=== PATIENT | female | born 1990 | race Caucasian/White ===

== ENCOUNTER 2017-10-29 10:00 | Inpatient (IN) | payer OTHER ==
[2017-10-29 10:53] VITALS: BMI 17.2
[2017-10-29] MEDS ORDERED: Sodium Chloride 0.9% 1,000 ML IV STA (11:04)
--- NOTE | 2017-10-29 11:09 | ED PDOC ---
Arrival/HPI - General Chief Complaint: Back Pain Time Seen by Provider: 10/29/17 10:59 Historian: Patient - History of Present Illness Narrative History of Present Illness (Text): 10/29/17 11:06 27yo female with no PMhx who present with complaint of generalized bodyache, back pain, dysuria, nausea, vomiting and fever since last night. she did not take any medication for her symptoms. She denies cough, sore throat, abdominal pain, urinary frequency, hematuria, melena, diarrhea, any other complaint. Past Medical History - Provider Review Nursing Documentation Reviewed: Yes - Infectious Disease Hx of Infectious Diseases: None - Tetanus Immunization Tetanus Immunization: Unknown - Reproductive Menopause: No - Cardiac Hx Cardiac Disorders: No - Pulmonary Hx Respiratory Disorders: No - Neurological Hx Neurological Disorder: No - HEENT Hx HEENT Disorder: No - Renal Hx Renal Disorder: No - Endocrine/Metabolic Hx Endocrine Disorders: No - Hematological/Oncological Hx Blood Disorders: No - Integumentary Hx Dermatological Disorder: No - Musculoskeletal/Rheumatological Hx Falls: No - Gastrointestinal Hx Gastrointestinal Disorders: No - Genitourinary/Gynecological Hx Urinary Tract Infection: Yes - Psychiatric Hx Substance Use: No - Anesthesia Hx Anesthesia: No Family/Social History - Physician Review Nursing Documentation Reviewed: Yes Family/Social History: Unknown Family HX Smoking Status: Never Smoked Hx Alcohol Use: No Hx Substance Use: No Allergies/Home Meds Allergies/Adverse Reactions: Allergies No Known Allergies Allergy (Verified 10/29/17 10:49) Home Medications: Home Meds Medication Instructions Recorded Confirmed No Known Home Med 10/29/17 10/29/17 Review of Systems - Physician Review All systems were reviewed & negative as marked: Yes - Review of Systems Constitutional: Fatigue, Fevers Eyes: Normal ENT: Normal Respiratory: Normal Cardiovascular: Normal Gastrointestinal: Normal Genitourinary Female: Dysuria. absent: Frequency, Hematuria Musculoskeletal: Back Pain Skin: Normal Neurological: Normal Endocrine: Normal Hemo/Lymphatic: Normal Psychiatric: Normal Physical Exam Vital Signs Reviewed: Yes Vital Signs Temp Pulse Resp BP Pulse Ox 10/29/17 20:02 109 H 18 116/58 L 98 10/29/17 16:45 100.4 F H 113 H 18 117/71 100 10/29/17 15:31 110 H 18 100 10/29/17 14:02 104 H 18 132/77 99 10/29/17 12:31 100.1 F H 90 18 106/54 L 100 10/29/17 10:43 102.0 F H 110 H 19 129/81 100 Temperature: Febrile Blood Pressure: Normal Pulse: Tachycardic Respiratory Rate: Normal Appearance: Positive for: Well-Appearing, Non-Toxic, Comfortable Pain Distress: None Mental Status: Positive for: Alert and Oriented X 3 - Systems Exam Head: Present: Atraumatic, Normocephalic Pupils: Present: PERRL Extroacular Muscles: Present: EOMI Conjunctiva: Present: Normal Mouth: Present: Moist Mucous Membranes Neck: Present: Normal Range of Motion Respiratory/Chest: Present: Clear to Auscultation, Good Air Exchange. No: Respiratory Distress, Accessory Muscle Use Cardiovascular: Present: Regular Rate and Rhythm, Normal S1, S2. No: Murmurs Abdomen: Present: Normal Bowel Sounds. No: Tenderness, Distention, Peritoneal Signs, Rebound, Guarding, McBurney's Point Tender, Rovsing's Sign Present Back: Present: CVA Tenderness (right CVA tenderness) Upper Extremity: Present: Normal Inspection. No: Cyanosis, Edema Lower Extremity: Present: Normal Inspection. No: Edema Neurological: Present: GCS=15, CN II-XII Intact, Speech Normal Skin: Present: Warm, Dry, Normal Color. No: Rashes Psychiatric: Present: Alert, Oriented x 3, Normal Insight, Normal Concentration Medical Decision Making ED Course and Treatment: 10/29/17 20:13 PT in ED for stated history. She was febrile and tachy on presentation. Leukocysotis was noted and pt have right sided CVA tenderness. She continued to complain of pain in ED after medication. She was hydrated and her HR improved in ED. Rapid flu was negative. Pt had large blood in her UA and abdominal / pelvic CT was ordered to r/o renal colic. Abdominal /Pelvis CT Pt will be admitted tof pyelonephritis. Result and plan was DW the pt and she agreed. Case was DW Dr. Cutler and he accepted pt for admission. He saw patient by the bedside in ED. - Lab Interpretations Lab Results: 10/29/17 11:00 10/29/17 11:00 Lab Results 10/29/17 11:33: Urine Color Yellow, Urine Appearance Clear, Urine pH 6.0, Ur Specific [place] 1.020, Urine Protein 30 H, Urine Glucose (UA) Negative, Urine Ketones Trace H, Urine Blood Large H, Urine Nitrate Negative, Urine Bilirubin Negative, Urine Urobilinogen 0.2, Ur Leukocyte Esterase Small H, Urine RBC 20 - 25, Urine WBC 5 - 10, Ur Epithelial Cells 4 - 5, Urine Bacteria Many, Coarse Granular Casts Trace H 10/29/17 11:00: Beta HCG, Quant < 2.39 10/29/17 11:00: Sodium 140, Potassium 3.5 L, Chloride 100, Carbon Dioxide 27, Anion Gap 16, BUN 10, Creatinine 0.8, Est GFR ( Amer) > 60, Est GFR (Non- Af Amer) > 60, Random Glucose 93, Calcium 10.0, Total Bilirubin 0.9, AST 24, ALT 29, Alkaline Phosphatase 72, Total Protein 8.3, Albumin 4.7, Globulin 3.6, Albumin/Globulin Ratio 1.3 10/29/17 11:00: WBC 15.5 H D, RBC 3.84, Hgb 11.9 L, Hct 36.2, MCV 94.3, MCH 31.0 , MCHC 32.9, RDW 13.6, Plt Count 249, MPV 10.4, Gran % 87.6 H, Lymph % (Auto) 3.5 L, [place] % (Auto) 8.8 H, Eos % (Auto) 0.0 L, Baso % (Auto) 0.1, Gran # 13.59 H, Lymph # (Auto) 0.6 L, [place] # (Auto) 1.4 H, Eos # (Auto) 0.0, Baso # (Auto) 0.01, Neutrophils % (Manual) 92 H, Lymphocytes % (Manual) 3 L, Monocytes % ( Manual) 5 - RAD Interpretation Radiology Orders: 10/29/17 11:50 ABD & PELVIS W/O PO OR IV CONT [CT] Stat - Medication Orders Current Medication Orders: Acetaminophen (Tylenol 325mg Tab) 650 mg PO Q6 PRN PRN Reason: Fever >100.4 F Famotidine (Pepcid) 20 mg PO DAILY YORDAN Sodium Chloride (Sodium Chloride 0.9%) 1,000 mls @ 100 mls/hr IV .Q10H YORDAN Last Admin: 10/29/17 17:47 Dose: 100 mls/hr eMAR Start Stop Document 10/29/17 17:47 BECKI (Rec: 10/29/17 17:47 BECKI CHEN-PC) Intravenous Solution Start Date 10/29/17 Start Time 17:47 Potassium Chloride (Potassium Chloride 20 Meq/100 Ml) 20 meq in 100 mls @ 50 mls/hr IVPB Q2H YORDAN Stop: 10/29/17 21:14 Last Admin: 10/29/17 17:46 Dose: 50 mls/hr eMAR Start Stop Document 10/29/17 17:46 BECKI (Rec: 10/29/17 17:46 BECKI CHEN-PC) Intravenous Solution Start Date 10/29/17 Start Time 17:46 End Date 10/29/17 End time 19:46 Total Infusion Time 120 Metronidazole (Flagyl) 500 mg in 100 mls @ 100 mls/hr IVPB Q8 YORDAN PRN Reason: Protocol Ceftriaxone Sodium (Rocephin 2 Gm Ivpb) 2 gm in 100 mls @ 100 mls/hr IVPB DAILY YORDNA PRN Reason: Protocol Ketorolac Tromethamine (Toradol) 15 mg IVP Q6 PRN PRN Reason: Pain, moderate (4-7) Ondansetron HCl (Zofran Inj) 4 mg IVP Q6 PRN PRN Reason: Nausea/Vomiting Discontinued Medications Acetaminophen (Tylenol 325mg Tab) 650 mg PO STAT STA Stop: 10/29/17 11:05 Last Admin: 10/29/17 11:14 Dose: 650 mg [facility] Pain/Vitals Document 10/29/17 11:14 BECKI (Rec: 10/29/17 11:14 BECKI CHEN-PC) Pain Reassessment Is This A Pain ReAssessment? No Sleep Is patient sleeping during reassessment? No Presence of Pain Presence of Pain Yes Re-Assess: [facility] Pain/Vitals Document 10/29/17 12:14 BECKI (Rec: 10/29/17 17:30 BECKI CHEN-PC) Pain Reassessment Is This A Pain ReAssessment? No Sleep Is patient sleeping during reassessment? No Presence of Pain Presence of Pain No Sodium Chloride (Sodium Chloride 0.9%) 1,000 mls @ 999 mls/hr IV .Q1H1M STA Stop: 10/29/17 12:04 Last Admin: 10/29/17 11:13 Dose: 999 mls/hr eMAR Start Stop Document 10/29/17 11:13 SZA (Rec: 10/29/17 11:13 BECKI CHEN-PC) Intravenous Solution Start Date 10/29/17 Start Time 11:13 End Date 10/29/17 End time 12:13 Total Infusion Time 60 Metronidazole (Flagyl) 500 mg in 100 mls @ 100 mls/hr IVPB STAT STA PRN Reason: Protocol Stop: 10/29/17 15:52 Last Admin: 10/29/17 15:25 Dose: 100 mls/hr eMAR Start Stop Document 10/29/17 15:25 SZA (Rec: 10/29/17 15:25 BECKI CHEN-PC) Intravenous Solution Start Date 10/29/17 Start Time 15:25 End Date 10/29/17 End time 16:00 Total Infusion Time 35 Cefepime HCl (Maxipime 2gm) 2 gm in 100 mls @ 100 mls/hr IVPB STAT STA PRN Reason: Protocol Stop: 10/29/17 15:51 Last Admin: 10/29/17 16:23 Dose: 100 mls/hr eMAR Start Stop Document 10/29/17 16:23 SZA (Rec: 10/29/17 16:37 BECKI CHEN-PC) Intravenous Solution Start Date 10/29/17 Start Time 16:20 End Date 10/29/17 End time 17:20 Total Infusion Time 60 Vancomycin HCl (Vancomycin 1gm) 1 gm in 250 mls @ 167 mls/hr IVPB STAT STA PRN Reason: Protocol Stop: 10/29/17 16:22 Last Admin: 10/29/17 17:54 Dose: 167 mls/hr eMAR Start Stop Document 10/29/17 17:54 SZA (Rec: 10/29/17 17:54 BECKI [id number]) Intravenous Solution Start Date 10/29/17 Start Time 17:54 End Date 10/29/17 End time 19:30 Total Infusion Time 96 Ketorolac Tromethamine (Toradol) 30 mg IVP STAT STA Stop: 10/29/17 11:06 Last Admin: 10/29/17 11:14 Dose: 30 mg MAR Pain Assessment Document 10/29/17 11:14 LYRICA (Rec: 10/29/17 11:14 BECKI [id number]) Pain Reassessment Is this a pain reassessment? No Sleep Is patient sleeping during reassessment? No Presence of Pain Presence of Pain Yes IVP Administration Document 10/29/17 11:14 [facility] (Rec: 10/29/17 11:14 [facility] [id number]) Charges for Administration # of IVP Administrations 1 Re-Assess: [facility] Pain Assessment Document 10/29/17 12:14 [facility] (Rec: 10/29/17 17:29 [facility] [id number]) Pain Reassessment Is this a pain reassessment? No Sleep Is patient sleeping during reassessment? Yes Morphine Sulfate (Morphine) 2 mg IVP STAT STA Stop: 10/29/17 14:47 Last Admin: 10/29/17 15:24 Dose: 2 mg [facility] Pain Assessment Document 10/29/17 15:24 [facility] (Rec: 10/29/17 15:24 [facility] [id number]) Pain Reassessment Is this a pain reassessment? No Sleep Is patient sleeping during reassessment? No Presence of Pain Presence of Pain Yes Description Description Intermittent Intensity of Pain at present 6 IVP Administration Document 10/29/17 15:24 [facility] (Rec: 10/29/17 15:24 [facility] [id number]) Charges for Administration # of IVP Administrations 1 Re-Assess: [facility] Pain Assessment Document 10/29/17 16:24 [facility] (Rec: 10/29/17 20:04 [facility] [id number]) Pain Reassessment Is this a pain reassessment? Yes Sleep Is patient sleeping during reassessment? No Presence of Pain Presence of Pain Yes Pain Scale Used Pain Scale Used Numeric Description Description Intermittent Intensity of Pain at present 3 Ondansetron HCl (Zofran Odt) 4 mg PO STAT STA Stop: 10/29/17 11:05 Last Admin: 10/29/17 11:14 Dose: 4 mg Potassium Chloride (K-Dur 20 Meq Er Tab) 20 meq PO STAT STA Stop: 10/29/17 16:28 Last Admin: 10/29/17 16:39 Dose: 20 meq Disposition/Present on Arrival - Present on Arrival Any Indicators Present on Arrival: No History of DVT/PE: No History of Uncontrolled Diabetes: No Urinary Catheter: No History of Decub. Ulcer: No History Surgical Site Infection Following: None - Disposition Have Diagnosis and Disposition been Completed?: Yes Diagnosis: Pyelonephritis Disposition: HOSPITALIZED Disposition Time: 15:00 Patient Plan: Admission Patient Problems: Current Active Problems Problem Status Onset Pyelonephritis Acute Condition: FAIR
[2017-10-29 11:36] LABS: BASO # 0.01 K/mm3 (0.0-2.0); BASO % 0.1 % (0.0-3.0); GRAN # 13.59 (1.4-6.5); GRAN % 87.6 % (50.0-68.0); HEMOGLOBIN 11.9 g/dL (12.0-16.0); LYMPH # 0.6 (1.2-3.4); LYMPH % 3.5 % (22.0-35.0); MEAN CELL VOLUME 94.3 fl (80.0-105.0); MEAN CORPUSCULAR HGB CONC 32.9 g/dl (31.0-37.0); MEAN PLATELET VOLUME 10.4 fl (7.0-11.0); MONO # 1.4 (0.1-0.6); MONO % 8.8 % (1.0-6.0); PLATELET COUNT 249 10^3/uL (120.0-450.0); RBC 3.84 10^6/uL (3.5-6.1); RED CELL DISTRIBUTION WIDTH 13.6 % (11.5-14.5); WHITE BLOOD COUNT 15.5 10^3/ul (4.5-11.0)
[2017-10-29 11:40] LABS: URINE BILIRUBIN NEGATIVE (NEGATIVE); URINE BLOOD LARGE (NEGATIVE); URINE GLUCOSE (UA) NEGATIVE (NEGATIVE); URINE LEUKOCYTE ESTERASE SMALL Leu/uL (NEGATIVE); URINE NITRATE NEGATIVE (NEGATIVE); URINE PROTEIN 30 mg/dL (<30 mg/dL); URINE UROBILINOGEN 0.2 E.U./dL (<1 E.U./dL)
[2017-10-29 11:42] LABS: URINE APPEARANCE CLEAR (CLEAR); URINE COLOR YELLOW (YELLOW)
[2017-10-29 11:43] LABS: URINE RBC 20 - 25 /hpf (0-2)
[2017-10-29 11:44] LABS: URINE BACTERIA MANY (NEG); URINE COARSE GRANULAR CAST TRACE /hpf (0-2)
[2017-10-29 11:45] LABS: ALB/GLOB RATIO 1.3 (1.1-1.8); ALBUMIN 4.7 g/dL (3.0-4.8); ALT/SGPT 29 U/L (7-56); AST/SGOT 24 U/L (14-36); BLOOD UREA NITROGEN 10 mg/dL (7-21); GFR AFRICAN-AMERICAN > 60; GFR NON-AFRICAN AMERICAN > 60
[2017-10-29 12:01] LABS: LYMPHOCYTE 3 % (22.0-35.0); MONOCYTE 5 % (1.0-6.0); NEUTROPHIL 92 % (50.0-70.0)
--- NOTE | 2017-10-29 13:23 | CT ---
PROCEDURE: CT Abdomen and Pelvis without intravenous contrast HISTORY: back pain r/o renal colic COMPARISON: Abdomen pelvis CT with contrast 05/05/2016 TECHNIQUE: Helical CT of the abdomen and pelvis was performed without oral or intravenous contrast as per referring physician request. Contrast Dose: None Radiation dose: Total exam DLP = 220.49 mGy-cm. This CT exam was performed using one or more of the following dose reduction techniques: Automated exposure control, adjustment of the mA and/or kV according to patient size, and/or use of iterative reconstruction technique. FINDINGS: LOWER THORAX: 4 mm noncalcified nodule or area of limited atelectasis seen at the right middle lobe base laterally, image 3 series 3 common not seen in the prior lung base sections from 05/05/2016 CT. Lung bases are otherwise stable and unremarkable in the interval. LIVER: Tiny lucency is stable at the anterior portion of the dome of the liver too small to characterize. Lack images contrast limits evaluation of liver. A 2nd lucency is less well appreciable currently the previously shown on a T2 CT noted above. GALLBLADDER AND BILE DUCTS: Unremarkable. PANCREAS: Unremarkable. No gross lesion or ductal dilatation. SPLEEN: Unremarkable. ADRENALS: Unremarkable. No mass. KIDNEYS AND URETERS: Unremarkable. No hydronephrosis. No solid mass. VASCULATURE: Unremarkable. No aortic aneurysm. BOWEL: Unremarkable. No obstruction. No gross mural thickening. APPENDIX: The appendix is not identified. A gross pattern of appendicitis not appreciable however the study is limited to lack of contrast agents. PERITONEUM: No prominent ascites. Trace fluid is seen at the right side of the cul-de-sac posteriorly. No free air. LYMPH NODES: Unremarkable. No enlarged lymph nodes. BLADDER: Unremarkable. 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 BONES: No acute fracture. OTHER FINDINGS: None. IMPRESSION: 1. No radiodense urolithiasis, obstructive uropathy or perinephric reaction bilaterally. A limited lumbar scoliotic deformity is again appreciated. 2. Solitary tiny lucency seen at the dome of the liver anteriorly once again. 3. Trace fluid is seen in the right side of the cul-de-sac. No bowel obstruction, mesenteric edema, prominent ascites or free intraperitoneal gas. 4. No fracture is identified, however a limited scoliotic deformity of lumbar spine is again appreciated. 5. Incidental 4 mm noncalcified nodule or possible atypical atelectasis right base laterally. Follow-up chest CT is advised in 12 months to demonstrate resolution or stability.
[2017-10-29] MEDS ORDERED: levoFLOXacin 500 mg in D5W 500 MG/100 ML BAG IVPB STA (14:45)
[2017-10-29] MEDS ORDERED: Morphine 2 mg/ml ISec IVP STA (14:46)
[2017-10-29] MEDS ORDERED: Cefepime IV 2 gm in NS 2 GM/100 ML BAG IVPB STA (14:52)
[2017-10-29] MEDS ORDERED: Vancomycin 1gm in NS 250ml 1 GM/250 ML BAG IVPB STA (14:53)
[2017-10-29] MEDS ORDERED: metroNIDAZOLE IV 500 mg/100 ml 500 MG/100 ML BAG IVPB STA (14:53)
[2017-10-29] MEDS ORDERED: Sodium Chloride 0.9% 1,000 ML IV SCH (16:00)
--- NOTE | 2017-10-29 16:15 | CP.PCM.HP ---
History of Present Illness - History of Present Illness History of Present Illness: H&P. Dr. Cutler 27yo F with no significant PMHx here for evaluation of fever, chills, nausea, vomiting, dysuria and b/l back pain. Patient reports that she went to [facility] last night and her symptoms began soon after. She reports nausea, and multiple episodes of vomiting (nonbilious, nonbloody). Dysuria and Bilateral flank pain (left greater than right). Generalized body aches. Fevers and chills at home. She also reports a generalized headache. She took two OTC ibuprofen last night with no relief. She was accompanied to dinner by boyfriend and son and they do not exhibit any of her symptoms. She denies any other sick contacts. Denies obtaining flu vaccine this year. LMP on Oct 17. Denies and reports having an IUD for contraception. She does report a hx of a slip and fall on ice last week on Oct 23 but denies any other trauma. Fall was minor in nature and she did not have any symptoms after. She does report hx of UTIs in the past, however, this episode of dysuria is not as severe. Currently denies any hematuria. No bowel symptoms. PMHx: denies PSHx: denies Family Hx: denies Social Hx: denies tobacco, denies etoh, denies illicit drugs. NKDA Present on Admission - Present on Admission Any Indicators Present on Admission: No Review of Systems - Review of Systems All systems: reviewed and no additional remarkable complaints except - Constitutional Constitutional: Chills, Fever, Headache - EENT Eyes: absent: Change in Vision Nose/Mouth/Throat: absent: Nasal Discharge, Dysphagia - Cardiovascular Cardiovascular: absent: Chest Pain, Dyspnea - Respiratory Respiratory: absent: Cough, Dyspnea, Chest Congestion - Gastrointestinal Gastrointestinal: Nausea, Vomiting. absent: Abdominal Pain, Diarrhea, Dyspepsia , Dysphagia, Hematemesis, Hematochezia - Genitourinary Genitourinary: Dysuria, Flank Pain. absent: Hematuria - Musculoskeletal Musculoskeletal: Back Pain - Neurological Neurological: absent: Dizziness, Numbness, Focal Weakness, Loss of Vision Past Patient History - Infectious Disease Hx of Infectious Diseases: None - Tetanus Immunizations Tetanus Immunization: Unknown - Past Social History Smoking Status: Never Smoked - CARDIAC Hx Cardiac Disorders: No - PULMONARY Hx Respiratory Disorders: No - NEUROLOGICAL Hx Neurological Disorder: No - HEENT Hx HEENT Problems: No - RENAL Hx Chronic Kidney Disease: No - ENDOCRINE/METABOLIC Hx Endocrine Disorders: No - HEMATOLOGICAL/ONCOLOGICAL Hx Blood Disorders: No - INTEGUMENTARY Hx Dermatological Problems: No - MUSCULOSKELETAL/RHEUMATOLOGICAL Hx Falls: No - GASTROINTESTINAL Hx Gastrointestinal Disorders: No - GENITOURINARY/GYNECOLOGICAL Hx Urinary Tract Infection: Yes - PSYCHIATRIC Hx Substance Use: No - ANESTHESIA Hx Anesthesia: No Meds Allergies/Adverse Reactions: Allergies Allergy/AdvReac Type Severity Reaction Status Date / Time No Known Allergies Allergy Verified 10/29/17 10:49 Physical Exam - Constitutional Appears: Non-toxic, No Acute Distress - Head Exam Head Exam: ATRAUMATIC, NORMAL INSPECTION, NORMOCEPHALIC - Eye Exam Eye Exam: EOMI, Normal appearance. absent: Scleral icterus - ENT Exam ENT Exam: Mucous Membranes Moist - Respiratory Exam Respiratory Exam: Clear to Auscultation Bilateral, NORMAL BREATHING PATTERN. absent: Accessory Muscle Use, Rales, Rhonchi, Wheezes, Respiratory Distress - Cardiovascular Exam Cardiovascular Exam: RRR. absent: JVD - GI/Abdominal Exam GI & Abdominal Exam: Normal Bowel Sounds, Soft. absent: Distended, Firm, Guarding, Rebound, Rigid, Tenderness - Extremities Exam Extremities exam: Positive for: normal inspection. Negative for: calf tenderness - Back Exam Back exam: CVA tenderness (L), CVA tenderness (R) - Neurological Exam Neurological exam: Alert, Oriented x3 - Psychiatric Exam Psychiatric exam: Normal Affect, Normal Mood - Skin Skin Exam: Dry, Intact, Normal Color, Warm Results - Vital Signs Recent Vital Signs: Last Vital Signs Temp 100.1 F H 10/29/17 12:31 Pulse 110 H 10/29/17 15:31 Resp 18 10/29/17 15:31 BP 106/54 L 10/29/17 12:31 Pulse Ox 100 10/29/17 15:31 - Labs Result Diagrams: 10/29/17 11:00 10/29/17 11:00 Labs: Laboratory Results - last 24 hr 10/29/17 10/29/17 10/29/17 11:00 11:00 11:33 WBC 15.5 H D RBC 3.84 Hgb 11.9 L Hct 36.2 MCV 94.3 MCH 31.0 MCHC 32.9 RDW 13.6 Plt Count 249 MPV 10.4 Gran % 87.6 H Lymph % (Auto) 3.5 L [place] % (Auto) 8.8 H Eos % (Auto) 0.0 L Baso % (Auto) 0.1 Gran # 13.59 H Lymph # (Auto) 0.6 L [place] # (Auto) 1.4 H Eos # (Auto) 0.0 Baso # (Auto) 0.01 Neutrophils % (Manual) 92 H Lymphocytes % (Manual) 3 L Monocytes % (Manual) 5 Sodium 140 Potassium 3.5 L Chloride 100 Carbon Dioxide 27 Anion Gap 16 BUN 10 Creatinine 0.8 Est GFR ( Amer) > 60 Est GFR (Non-Af Amer) > 60 Random Glucose 93 Lactic Acid Calcium 10.0 Total Bilirubin 0.9 AST 24 ALT 29 Alkaline Phosphatase 72 Total Protein 8.3 Albumin 4.7 Globulin 3.6 Albumin/Globulin Ratio 1.3 Urine Color Yellow Urine Appearance Clear Urine pH 6.0 Ur Specific [place] 1.020 Urine Protein 30 H Urine Glucose (UA) Negative Urine Ketones Trace H Urine Blood Large H Urine Nitrate Negative Urine Bilirubin Negative Urine Urobilinogen 0.2 Ur Leukocyte Esterase Small H Urine RBC 20 - 25 Urine WBC 5 - 10 Ur Epithelial Cells 4 - 5 Urine Bacteria Many Coarse Granular Casts Trace H 10/29/17 15:20 WBC RBC Hgb Hct MCV MCH MCHC RDW Plt Count MPV Gran % Lymph % (Auto) [place] % (Auto) Eos % (Auto) Baso % (Auto) Gran # Lymph # (Auto) [place] # (Auto) Eos # (Auto) Baso # (Auto) Neutrophils % (Manual) Lymphocytes % (Manual) Monocytes % (Manual) Sodium Potassium Chloride Carbon Dioxide Anion Gap BUN Creatinine Est GFR ( Amer) Est GFR (Non-Af Amer) Random Glucose Lactic Acid 1.1 Calcium Total Bilirubin AST ALT Alkaline Phosphatase Total Protein Albumin Globulin Albumin/Globulin Ratio Urine Color Urine Appearance Urine pH Ur Specific [place] Urine Protein Urine Glucose (UA) Urine Ketones Urine Blood Urine Nitrate Urine Bilirubin Urine Urobilinogen Ur Leukocyte Esterase Urine RBC Urine WBC Ur Epithelial Cells Urine Bacteria Coarse Granular Casts Assessment & Plan - Assessment and Plan (Free Text) Assessment: 27yo F with no PMHx here with b/l flank pain, fevers, chills, N/V, headaches, dysuria 1. SIRS - r/o sepsis - f/u lactic acid - Leukocytosis - Febrile: Tmax 102 - ID consult requested - In ED: Cefepime, Vanc, Flagyl x1 dose - CT Chest/Abd/Pelvis: No radiodence urolithiasis or evidence obstructive uropathy. Mild lumbar Scoliosis (chronic and stable). Incidental 4mm noncalcified nodule or atypical atelectasis at R Lung base. Trace fluid in Right Cul-de-sac. Small liver lesion seen stable as before. - UA: small LE, 20-25RBCs, 5-10WBCs. Many bacteria - F/u blood Cxs/Urine Cxs - f/u UDS 2. Consider viral illness - Full liquid diet - F/u flu swab - Zofran prn - Pain control: Toradol - Fever control: Tylenol - IVF Further recs as per Dr. Omayra Wells PGY1
[2017-10-29] MEDS ORDERED: Potassium Chloride 20 mEq ER Tab PO STA (16:27)
[2017-10-29] MEDS: Sodium Chloride 0.9% 1,000 ML IV SCH (22:46)
[2017-10-29] MEDS: metroNIDAZOLE IV 500 mg/100 ml 500 MG/100 ML BAG IVPB SCH (22:57)
[2017-10-29] MEDS ORDERED: Pneumococcal 23-Valent Vaccine IM ONE (23:31)
[2017-10-29] MEDS ORDERED: Influenza Vaccine 60 mcg/0.5 mL SYR (4YR UP) IM ONE (23:31)
[2017-10-30] MEDS: cefTRIAXone 2 GM IN NS 2 GM/100 ML BAG IVPB SCH ×2 (00:29→09:44)
[2017-10-30] MEDS: Pantoprazole 40 mg EC Tab PO SCH (06:05)
[2017-10-30] MEDS: metroNIDAZOLE IV 500 mg/100 ml 500 MG/100 ML BAG IVPB SCH ×3 (06:06→23:36)
[2017-10-30 08:05] LABS: BASO # 0.02 K/mm3 (0.0-2.0); BASO % 0.1 % (0.0-3.0); GRAN # 16.32 (1.4-6.5); GRAN % 86.7 % (50.0-68.0); HEMOGLOBIN 11.5 g/dL (12.0-16.0); LYMPH # 1.4 (1.2-3.4); LYMPH % 7.3 % (22.0-35.0); MEAN CELL VOLUME 94.5 fl (80.0-105.0); MEAN CORPUSCULAR HEMOGLOBIN 30.1 pg (25.0-35.0); MEAN CORPUSCULAR HGB CONC 31.9 g/dl (31.0-37.0); MEAN PLATELET VOLUME 10.8 fl (7.0-11.0); MONO # 1.1 (0.1-0.6); MONO % 5.9 % (1.0-6.0); RBC 3.82 10^6/uL (3.5-6.1); RED CELL DISTRIBUTION WIDTH 13.8 % (11.5-14.5); WHITE BLOOD COUNT 18.8 10^3/ul (4.5-11.0)
[2017-10-30 08:35] LABS: ALB/GLOB RATIO 1.2 (1.1-1.8); ALBUMIN 4.1 g/dL (3.0-4.8); ALT/SGPT 35 U/L (7-56); AST/SGOT 30 U/L (14-36); BILIRUBIN,DIRECT 0.5 mg/dL (0.0-0.4); BLOOD UREA NITROGEN 8 mg/dL (7-21); CALCIUM 9.3 mg/dL (8.4-10.5); GFR AFRICAN-AMERICAN > 60; GFR NON-AFRICAN AMERICAN > 60; MAGNESIUM 1.9 mg/dL (1.7-2.2)
[2017-10-30] MEDS: Sodium Chloride 0.9% 1,000 ML IV SCH (09:43)
--- NOTE | 2017-10-30 11:36 | HP ---
HISTORY OF PRESENT ILLNESS: Patient is a 27-year-old female presented to the [facility] Emergency Room, complains of bilateral flank pain starting predominantly on the left side. Patient presented with bilateral flank pain and burning urination since last night. Patient states that most of the pain is on the left flank area, radiating down to the left side. Patient also reported fever, chills, nausea, vomiting and dysuria and headache. Patient stated that her all symptoms started after having dinner at [facility]. Patient denies being . No cough. No exposure to sick patients. Patient came to the emergency room as a walk-in. Patient complained of bilateral flank pain, burning urination. High-grade fever. According to the ER physician evaluation, also complained of generalized body ache bilateral flank pain, dysuria, nausea, vomiting and fever. CODE STATUS: Full code. LIVING WILL ADVANCE DIRECTIVE: None. ALLERGIES: NONE. Height is 5 feet 7 inches. BMI is 17.2. HOME MEDICATIONS: None. SOCIAL HISTORY: Denies smoking. Denies alcohol. Denies drug use. According to the ER physician evaluation, patient also denies smoking, drug use, communicable transmissible disease. Patient does report unprotected sex. Patient also reports use of tampons. MENSTRUAL HISTORY: Patient's last menstrual period was 10/17. Patient denies being . FAMILY HISTORY: Not available. OCCUPATIONAL HISTORY: Patient is an employed female. PAST MEDICAL AND SURGICAL HISTORY: History of the intrauterine device placement, history of urinary tract infection, history of anemia. Patient's past medical history is significant for abdominal pain, admitted to [facility] in 04/2016 for abdominal pain for dislodged IUD, history of adnexal prominence, history of tampon use, history of abdominal pain secondary to above. History of malpositioned IUD. PHYSICAL EXAMINATION: GENERAL: Patient is seen and examined in bed #8 in the emergency room. Patient is seen lying in the bed. VITAL SIGNS: T-max is 102 degrees Fahrenheit down to 100.4; heart rate is 110, 104, 113, 109; blood pressure 132/77, 129/81, 116/58; respirations 18; O2 sat 98% to 100%. HEENT: Patient's head examination is normocephalic, atraumatic. HEENT examination shows pink conjunctivae. Dry oral mucosa. No neck rigidity. CHEST: Kyphosis. LUNGS: Shows occasional rhonchi. CARDIOVASCULAR: Shows S1, S2, regular rhythm. ABDOMEN: Soft. Positive bowel sound. Positive left periumbilical tenderness. Positive bilateral costovertebral angle tenderness, left more than the right.. No suprapubic tenderness noted. No right and left upper and lower quadrant tenderness noted. GENITALIA: Female. RECTAL: Examination is deferred. EXTREMITIES: Shows no pitting edema, no calf tenderness, no Homans' sign. NEUROLOGIC: Patient is alert, awake, oriented x3. Cranial nerves II through XII intact. Gait examination is independent. VASCULAR: Palpable pulses. MUSCULOSKELETAL: Shows a body mass index of 17. DIAGNOSTICS: WBC 15.5, hemoglobin/hematocrit 12 and 36, platelet 249. Granulocytes, 88% segs. Chemistries is significant for potassium of 3.5. LFTs are normal. Beta hCG less than 2.39, lactic acid 1.1. Urine protein 30, ketone trace, large blood, small leukocyte esterase, trace granulocytes count. Influenza A and B negative. Patient underwent a CAT scan of the abdomen and pelvis, which was done in the emergency room. The results were reviewed. Patient was seen in the emergency room by the ER physician. Patient was treated by the ER physician with IV fluid, IV antibiotics. Patient was given Tylenol. Patient was given IV fluid. Patient was given Toradol IV. Patient was given potassium IV. Patient was given Rocephin 2 g. IMPRESSION AND PLAN: 1. High-grade fever. 2. Tachycardia. 3. Systemic inflammatory response syndrome. 4. Mild hypotension. 5. Leukocytosis with granulocytosis. 6. Normocytic anemia. 7. Hypokalemia. 8. Proteinuria, ketonuria, hematuria, pyuria, bacteriuria. 9. Questionable pyelonephritis versus urinary tract infection versus cystitis. 10. Questionable pelvic inflammatory disease with history of unprotected sexual encounters. 11. Right middle lobe atelectasis versus 4-mm noncalcified nodule. 12. Hepatic dome, solitary lucency, too small to characterize. 13. In utero intrauterine device. 14. Lumbar scoliosis. 15. Right cul-de-sac trace fluid. Etiology undetermined. 16. Incidental 4-mm noncalcified atelectasis of the right middle lobe or right base. 17. Questionable urinary tract infection versus pyelonephritis versus pelvic inflammatory disease. 18. History of abdominal pain secondary to malposition intrauterine device. At present, patient will be admitted to [facility]. Patient has been ordered urine drug screen. Iron studies have been ordered. Hepatitis panel, HIV have been ordered. Repeat CMP, LFT, magnesium, phosphorus has been ordered. Patient's HIV, Chlamydia/Neisseria has been ordered. ESR has been ordered. Blood and urine cultures ordered. Infectious Disease consultation with Dr. Dominguez requested. CURRENT MEDICATIONS: Patient is started on: 1. Flagyl 500 IV q. 8. 2. Heparin 5000 subcu q. 8. 3. Patient was given potassium supplementation. 4. Maxipime 2 g was given in the ER. 5. Patient is on Protonix 40 daily. 6. Rocephin 2 g IV daily ordered. 7. Patient is started on IV fluid 0.9 normal saline at 150 mL an hour. 8. Toradol 15 mg IV q. 6 p.r.n. 9. Tylenol 650 q. 6 p.r.n. for temperature greater than or equal to 99.5. 10. Patient was given vancomycin 1 g dose in the ER. 11. Patient is on Zofran 4 mg IV q. 6. Patient has been ordered pelvic transvaginal ultrasound. Heart healthy diet ordered. Out of bed to chair, JEFF bunchings, SCDs have ordered. Patient, at present, was seen in the emergency room in stretcher #8. Patient was explained about the details of her medical condition, need for hospitalization, need for evaluation, need for management, need for further diagnostic therapeutic intervention was extensively explained to the patient at length and all questions concerned answered, which she acknowledged and understood. Dictated and electronically signed, not read. Satish Cutler MD
[2017-10-30 11:46] LABS: TRANSFERRIN 195.97 mg/dL (206-381)
[2017-10-30 12:02] LABS: HEPATITIS B SURFACE AG Negative (NEGATIVE)
[2017-10-30 12:08] LABS: HEPATITIS A IGM NEGATIVE (NEGATIVE); HEPATITIS B CORE AB NEGATIVE (NEGATIVE)
[2017-10-30 12:19] LABS: HEPATITIS C ANTIBODY NEGATIVE (NEGATIVE)
[2017-10-30 12:36] LABS: FOLATE 5.5 ng/mL
--- NOTE | 2017-10-30 13:17 | US ---
HISTORY: Pelvic pain/?PID COMPARISON: None available. TECHNIQUE: Transabdominal and transvaginal pelvic ultrasound was performed. FINDINGS: UTERUS: Measures 9.6 x 4.1 x 4.9 cm. Anteverted, normal in size and appearance. No fibroid or other mass lesion seen. ENDOMETRIUM: Measures 5.0 mm in diameter. An intrauterine device remains in satisfactory position. CERVIX: No cervical abnormality identified. RIGHT OVARY: Measures 4.0 x 1.7 x 3.1 cm. No solid mass. Normal flow. There is a 1.4 cm simple cyst/ dominant follicle. LEFT OVARY: Measures 4.6 x 2.1 x 4.5 cm. No solid mass. Normal flow. There is a 1.8 cm simple cyst/dominant follicle. FREE FLUID: No significant free fluid noted. OTHER FINDINGS: None. IMPRESSION: Normal pelvic ultrasound. Intrauterine device remains in satisfactory position.
--- NOTE | 2017-10-30 16:03 | RAD ---
HISTORY: Fever COMPARISON: 05/05/2016 FINDINGS: LUNGS: There is mild pulmonary hyperinflation and peribronchial cuffing with streaky opacities in the lungs. No focal consolidation PLEURA: No significant pleural effusion identified, no pneumothorax apparent. CARDIOVASCULAR: Normal. OSSEOUS STRUCTURES: No significant abnormalities. VISUALIZED UPPER ABDOMEN: Normal. OTHER FINDINGS: None. IMPRESSION: Findings are most compatible with reactive small airway disease/viral bronchitis. No lobar pneumonia.
[2017-10-30] MEDS ORDERED: Ergocalciferol 50,000 Intl Units Cap PO SCH (17:15)
[2017-10-30] MEDS: Meropenem 1g/NS 100mL IVPB 1 GM/100 ML PIGGYBACK IVPB SCH (22:26)
[2017-10-31] MEDS: Sodium Chloride 0.9% 1,000 ML IV SCH ×2 (01:04→08:34)
[2017-10-31] MEDS: Levalbuterol 1.25 MG/3 ML Inhal Soln UD IH SCH ×5 (01:28→21:15)
--- NOTE | 2017-10-31 01:48 | PN ---
DATE: 10/30/2017 SUBJECTIVE: The patient is seen in room 573, bed 2. Overnight nurse's notes were reviewed. The patient persisted to have fever, low-grade fever of 100.4, but this morning the patient's fever was 102.9, then down to 98.8. The patient was seen between 08:30 to 09:30 a.m. this morning. PHYSICAL EXAMINATION: VITAL SIGNS: Heart rate 104, 110, 113, 109, 109, 94, 94 beats per minute; blood pressure 106/34, 117/71, 116/58, 112/74, 112/74; respirations 18; O2 sat 97-98%. HEENT: Head examination normocephalic, atraumatic. HEENT examination shows pinkish conjunctivae. Dry oral mucosa. No neck rigidity. CHEST: Kyphosis. LUNGS: Shows occasional rhonchi, upper lung olson anteriorly. CARDIOVASCULAR: S1, S2. Regular rhythm. No audible murmur, gallop or rub. ABDOMEN: Soft. Positive bowel sounds. GENITALIA: Female. ABDOMEN: Soft. Positive bowel sounds. Positive bilateral costovertebral angle tenderness, left more than the right. Positive left periumbilical tenderness. No hepatosplenomegaly palpated. No right upper and left lower quadrant tenderness. RECTAL: Deferred. EXTREMITY: Shows no pitting edema, no calf tenderness, no Homans' sign. MUSCULOSKELETAL: Examination shows a body mass index of 17.2. VASCULAR: Palpable pulses. DIAGNOSTICS: On 10/30/2017, WBC count is gone up to 18.8 from 15.5, hemoglobin and hematocrit 11.5 and 36.1, platelet 206. Granulocytes 70% segs. ESR is 20. Retic count is 0.89. Sodium 141, potassium 3.6, chloride 106, CO2 of 21, anion gap 17, BUN 8, creatinine 0.8, GFR greater than 60, glucose 95, lactic acid 1.1, calcium 9.3, phosphorus 2.7, magnesium 1.1, iron 10, TIBC 253, iron saturation 4, transferrin 196, ferritin 90. LFTs are normal. Vitamin D 25-hydroxy 26.5. Procalcitonin level 0.87. CRP is greater than 15. RPR is nonreactive. Hepatitis A, B, C serologies negative. HIV negative. Urine cultures are growing gram-negative bharathi. Blood cultures, no growth for 24 hours. Chest x-ray shows hyperinflation and peribronchial cuffing with bilateral streaking suggestive of reactive small airway disease versus viral bronchitis. The patient's transvaginal and pelvic ultrasound noted. IMPRESSION AND PLAN: 1. High-grade fever of 103 degrees Fahrenheit. 2. Tachycardia. 3. Hypotension. 4. Most likely systemic inflammatory response syndrome. 5. Leukocytosis with granulocytosis. 6. Normocytic anemia. 7. Hypokalemia. 8. Hyperprocalcitoninemia. 9. Hypovitaminosis D. 10. Questionable iron deficiency. 11. Hypovitaminosis D. 12. Elevated C-reactive protein of greater than 15. 13. Gram-negative bharathi urinary tract infection with proteinuria, ketonuria, microscopic hematuria, pyuria, bacteriuria. 14. Possible viral bronchitis and reactive small airway disease with pulmonary hyperinflation and peribronchial cuffing with the bilateral pulmonary streaky opacities. 15. Right ovarian simple cyst. 16. Left ovarian simple cyst. 17. Intrauterine device. 18. Bilateral ovarian cyst. 19. Questionable gram-negative bharathi cystitis versus questionable clinical pyelonephritis. Plan at this time, the patient will be ordered repeat labs for the morning. The patient has been ordered Chlamydia, Neisseria titers. Repeat urine cultures ordered. Current consultation, Infectious Disease. The patient is also ordered influenza A and B. The patient is on doxycycline 100 mg p.o. q. 12, Drisdol 50,000 units every 48 hours, Flagyl 500 IV q. 8, heparin 5000 subcu q. 8 for DVT prophylaxis. The patient is on meropenem 1 g IV q. [address] Dominguez, meropenem 1 g IV q. 8 hours. The patient is on Protonix 40 mg daily, IV fluid 0.9 normal saline at 150 mL an hour, Toradol 15 mg IV q. 6 hours p.r.n. for 8 doses, Tylenol 650 mg q. 6 hours p.r.n. for temperature greater than or equal to 99.5. The patient is on Zofran 4 mg IV q. 6 p.r.n. The patient has been ordered heart-healthy, out of bed to chair. Ambulate. In addition, because of the patient's chest x-ray finding of viral bronchitis, the patient will be started on Xopenex nebulizer treatment. The patient will be ordered Xopenex nebulizer every 6 hours. At present, the patient's further management will be dependent upon the patient's clinical condition, hemodynamic status and as per response to therapeutic intervention, as per the patient's diagnostic test results and as per recommendation by all the physicians involved in the care of the patient. Dictated and electronically signed, not read. Satish Cutler MD
[2017-10-31] MEDS: Meropenem 1g/NS 100mL IVPB 1 GM/100 ML PIGGYBACK IVPB SCH ×4 (05:15→22:15)
--- NOTE | 2017-10-31 05:40 | CON ---
DATE: 10/30/2017 LOCATION: The patient was seen earlier this morning in room 573, bed 3. CHIEF COMPLAINT: Left flank pain times several days. HISTORY OF PRESENT ILLNESS: This is a 27-year-old female with past medical history significant for urinary tract infections, with no operations and no surgery in the past, no known allergies, admitted with left flank pain times several days, associated with fevers. The patient is complaining of dysuria. The patient also has chills. Had nausea and vomiting. REVIEW OF SYSTEMS: There is no cough, no chest pain, no sore throat. No diarrhea or constipation. No abdominal pain. No headaches or blurry vision. PAST MEDICAL HISTORY: Significant for urinary tract infections. No STDs. PAST SURGICAL HISTORY: Noncontributory. ALLERGIES: THE PATIENT HAS NO KNOWN ALLERGIES. SOCIAL HISTORY: She lives with her boyfriend and their child. Monogamous relationship, now 5 years. No travel history. PHYSICAL EXAMINATION: GENERAL: The patient is in bed. VITAL SIGNS: Temperature of 102, T-max is 103.4, blood pressure is 112/70, respiratory rate of 18, heart rate of 94, but was up to 110. HEENT: Unremarkable. NECK: Supple. LUNGS: Decreased breath sounds. HEART: Normal S1 and S2. ABDOMEN: Soft, nontender. No rebound or guarding. There is positive CVA tenderness on the left side. LABORATORY DATA: Reveals the white count of 15,500, hemoglobin of 11, white count again went up to 18,000. Chemistries reveal the patient has a BUN of 8, creatinine of 0.8. C-reactive protein is greater than 15, procalcitonin 0.87. Urinalysis is noted with 20-25 rbc's with 5-10 wbc's, many bacteria, trace coarse granular casts, 30 protein, large blood. Serology revealed the RPR is negative. Chlamydia and gonorrhea workup are pending. HIV is negative for generation. Hepatitis profile is negative. Microbiology reveals the blood cultures had no growth, urine cultures had gram-negative bharathi. The patient also had a CAT scan of the abdomen and pelvis, which revealed the patient has no urolithiasis or obstructive uropathy or perinephric reaction. There is trace of fluid in the cul-de-sac. No fractures identified. The patient had a transvaginal ultrasound, which reveals normal pelvic ultrasound. ASSESSMENT AND PLAN: The patient is a 27-year-old female with history of urinary tract infection, presenting with flank pain, fever, leukocytosis, and urinalysis showing gram-negative rods in urine. The patient has sepsis with left pyelonephritis with cerebrovascular accident tenderness. With gram-negative rods, we will treat the patient with meropenem and add doxycycline, although the sexually transmitted disease workup is pending. We will check on the identification of gram-negative rods and final blood cultures. We will make further recommendations upon the availability of initial culture results and identification of gram-negative rods. Case discussed with house staff. Gabriel Dominguez MD
[2017-10-31] MEDS: metroNIDAZOLE IV 500 mg/100 ml 500 MG/100 ML BAG IVPB SCH (06:10)
[2017-10-31 08:21] LABS: BASO # 0.01 K/mm3 (0.0-2.0); BASO % 0.1 % (0.0-3.0); EOS % 0.3 % (1.5-5.0); GRAN # 7.6 (1.4-6.5); GRAN % 75.3 % (50.0-68.0); HEMOGLOBIN 9.4 g/dL (12.0-16.0); LYMPH # 1.2 (1.2-3.4); LYMPH % 11.5 % (22.0-35.0); MEAN CELL VOLUME 93.5 fl (80.0-105.0); MEAN CORPUSCULAR HEMOGLOBIN 30.7 pg (25.0-35.0); MEAN CORPUSCULAR HGB CONC 32.9 g/dl (31.0-37.0); MEAN PLATELET VOLUME 10.6 fl (7.0-11.0); MONO # 1.3 (0.1-0.6); MONO % 12.8 % (1.0-6.0); RBC 3.06 10^6/uL (3.5-6.1); RED CELL DISTRIBUTION WIDTH 13.6 % (11.5-14.5); WHITE BLOOD COUNT 10.1 10^3/ul (4.5-11.0)
[2017-10-31] MEDS: Pantoprazole 40 mg EC Tab PO SCH (08:40)
[2017-10-31 08:47] LABS: BLOOD UREA NITROGEN 4 mg/dL (7-21); CALCIUM 8.8 mg/dL (8.4-10.5); GFR AFRICAN-AMERICAN > 60; GFR NON-AFRICAN AMERICAN > 60
[2017-10-31 08:48] LABS: ALB/GLOB RATIO 1.1 (1.1-1.8); ALT/SGPT 31 U/L (7-56); AST/SGOT 20 U/L (14-36)
--- NOTE | 2017-10-31 10:50 | PN ---
DATE: 10/31/2017 SUBJECTIVE: The patient is in bed, in no acute distress, nontoxic. PHYSICAL EXAMINATION: VITAL SIGNS: Temperature is 101.4, blood pressure is 98/50, respiratory rate of 20. HEENT: Examination of HEENT is unremarkable. NECK: Supple. LUNGS: Have decreased breath sounds. HEART: Normal S1, S2. ABDOMEN: Soft, nontender. LABORATORY DATA: Laboratory examination reveals a white count of 10,000, hemoglobin of 9, platelets of 150. BUN of 4, creatinine of 0.6. Urinalysis is noted and serology is negative. The patient's blood cultures are negative. Urine cultures are gram-negative bharathi and currently the patient is on the doxycycline and meropenem and Flagyl. ASSESSMENT AND PLAN: A 27-year-old female with a history of urinary tract infection, admitted with fever, left flank pain, leukocytosis, gram-negative bharathi in the urine, positive urinalysis. #1 is sepsis with left pyelonephritis with a gram-negative bharathi. We will discontinue the Flagyl. The patient states she had nausea with it. Continue the meropenem and doxycycline. We will check on the Chlamydia and GC workup and identification and sensitivity of the gram-negative bharathi. The patient did have a fever of 101.4 last night. We will follow the fever curve. Gabriel Dominguez MD
[2017-10-31 12:17] LABS: BARBITURATES, UR NEGATIVE (NEGATIVE); BENZODIAZEPINES, UR NEGATIVE (NEGATIVE); OPIATES, UR NEGATIVE (NEGATIVE); PHENCYCLIDINE, UR NEGATIVE (NEGATIVE)
--- NOTE | 2017-10-31 23:36 | PN ---
DATE: 10/31/2017 SUBJECTIVE: The patient is seen ambulating on the floor and hallway. The patient is seen then lying in the bed in room 573, bed 3. The patient states that she is still having rigors and chills. PHYSICAL EXAMINATION: VITAL SIGNS: T-max in the last 24 hours 103.4, down to 100.1, down to 101.2, down to 99, down to 101.4. Today's temperature is not documented. Heart rate 113, 74, 113, 94. Blood pressure 103/60, 98/55. No blood pressure readings from today is documented in the vital signs. Respiration 20. HEENT: The patient's head examination normocephalic, atraumatic. HEENT examination shows pink conjunctivae. Anicteric sclerae. Dry oral mucosa. No neck rigidity. CHEST: Kyphosis. LUNGS: Shows no rales, crackles or wheezing. CARDIOVASCULAR: S1, S2. Regular rhythm. No rales, crackles or wheezing. Occasional rhonchi noted, anterior upper lung olson. ABDOMEN: Soft. Positive bowel sounds. Positive left periumbilical tenderness. Positive left costovertebral angle tenderness. GENITALIA: Female. RECTAL: Deferred. EXTREMITIES: Shows no pitting edema, no calf tenderness, no Abbey's signs. NEUROLOGIC: The patient is alert, awake, oriented x3. Cranial nerves II through XII intact. Gait examination is independent. VASCULAR: Palpable pulses. MUSCULOSKELETAL: Shows a body mass index of 17.2. Cranial nerves II through XII intact. DIAGNOSTICS: On 10/31/2017, WBC count is down to 10.1 from 18.8, hemoglobin and hematocrit 9.4 and 28.6, platelet 150. Granulocytes 75% segs. Sodium 140, potassium 3.2, chloride 107, CO2 of 23, anion gap 12, BUN 4, creatinine 0.6, GFR greater than 60, glucose 82, lactic acid was negative at 1.1, calcium 8.8, magnesium 1.9. LFTs are normal. Urine drug screen negative. RPR nonreactive. Chlamydia, Neisseria gonorrhoeae pending. Urine culture, Escherichia coli, resistant to ampicillin. IMPRESSION AND PLAN 1. Sepsis secondary to Escherichia coli pyelonephritis and Escherichia coli urinary tract infection. 2. Hypotension. 3. Recurrent high-grade persistent fever. 4. Tachycardia. 5. Leukocytosis with granulocytosis. 6. Normocytic anemia. 7. Iron-deficiency normocytic anemia. 8. Hypokalemia. 9. Borderline hypomagnesemia. 10. Elevated C-reactive protein of greater than 15. 11. Hypovitaminosis D. 12. Hyperprocalcitoninemia. 13. Escherichia coli urinary tract infection and left pyelonephritis with proteinuria, ketonuria, microscopic hematuria, pyuria, bacteriuria. 14. Intrauterine device placement. 15. Bilateral simple ovarian cyst. 16. Persistent recurrent fever. Plan at this time, the patient is seen by Infectious Disease, recommendations noted. The patient has been ordered repeat labs. The patient's Chlamydia serologies are pending, gonorrhea serologies are pending. The patient has been ordered repeat urine cultures, which is still unconnected. The patient's plan at this time, the patient is on doxycycline 100 mg p.o. q. 12, Drisdol 50,000 units every 48 hours, heparin 5000 subcu q. 8, Venofer 200 mg IV daily, meropenem 1 g IV q. 8, Protonix 40 mg daily, IV fluid 0.9 normal saline at 150 mL an hour, Toradol 15 mg IV q. 6 hours p.r.n., Tylenol 650 mg p.o. q. 6 hours suppository and p.o. p.r.n. for temperature greater than or equal to 99.5 and headache, Zofran 4 mg IV q. 6 p.r.n. The patient is on Xopenex 0.63 mg nebulizer every 6 hours. At present, the patient has been advised out of bed to chair, JEFF aguilar, SCDs. Ad-maylin. The patient's repeat labs, CBC, CMP, LFT, magnesium has been ordered. Repeat urine cultures are again ordered today, which I have been ordering 3 days in a row. There are no vital signs documented from today all day. The patient has been extensively explained about details of her medical condition, details of diagnoses, details of test results and recommendation by all the physicians involved in the care of the patient in layman's language. All questions concerned answered to the patient's satisfaction. Dictated and electronically signed, not read. Satish Cutler MD [facility] # [id number]
[2017-11-01] MEDS: Levalbuterol 1.25 MG/3 ML Inhal Soln UD IH SCH ×3 (02:57→22:54)
[2017-11-01] MEDS: Meropenem 1g/NS 100mL IVPB 1 GM/100 ML PIGGYBACK IVPB SCH (06:05)
[2017-11-01] MEDS: Pantoprazole 40 mg EC Tab PO SCH (06:06)
[2017-11-01 08:43] LABS: ALB/GLOB RATIO 1.1 (1.1-1.8); ALBUMIN 3.1 g/dL (3.0-4.8); BILIRUBIN,DIRECT 0.2 mg/dL (0.0-0.4); MAGNESIUM 1.8 mg/dL (1.7-2.2)
[2017-11-01 08:47] LABS: BASO # 0.01 K/mm3 (0.0-2.0); BASO % 0.2 % (0.0-3.0); EOS % 0.5 % (1.5-5.0); GRAN # 4.04 (1.4-6.5); GRAN % 69.2 % (50.0-68.0); HEMOGLOBIN 9.5 g/dL (12.0-16.0); LYMPH # 0.9 (1.2-3.4); LYMPH % 16.1 % (22.0-35.0); MEAN CELL VOLUME 92.9 fl (80.0-105.0); MEAN CORPUSCULAR HEMOGLOBIN 30.7 pg (25.0-35.0); MEAN CORPUSCULAR HGB CONC 33.1 g/dl (31.0-37.0); MEAN PLATELET VOLUME 10.7 fl (7.0-11.0); MONO # 0.8 (0.1-0.6); RBC 3.09 10^6/uL (3.5-6.1); RED CELL DISTRIBUTION WIDTH 13.9 % (11.5-14.5); WHITE BLOOD COUNT 5.8 10^3/ul (4.5-11.0)
[2017-11-01 09:28] LABS: ALBUMIN 3.1 g/dL (3.0-4.8); ALT/SGPT 30 U/L (7-56); AST/SGOT 17 U/L (14-36); BLOOD UREA NITROGEN 2 mg/dL (7-21); CALCIUM 9.3 mg/dL (8.4-10.5); GFR AFRICAN-AMERICAN > 60; GFR NON-AFRICAN AMERICAN > 60
--- NOTE | 2017-11-01 10:14 | CP.PCM.PN ---
Subjective - Date & Time of Evaluation Date of Evaluation: 11/01/17 Time of Evaluation: 08:30 - Subjective Subjective: (covering for Dr. Cutler) Patient is seen this morning. She says that her pain is improved. She has some mild pain on the left side. Objective - Vital Signs/Intake and Output Vital Signs (last 24 hours): Temp Pulse Resp BP Pulse Ox 100.3 F H 88 18 109/63 98 11/01/17 08:00 11/01/17 08:00 11/01/17 08:00 11/01/17 08:00 11/01/17 08:00 Intake and Output: 11/01/17 11/01/17 06:59 18:59 Intake Total 4940 Balance 4940 - Medications Medications: Current Medications Acetaminophen (Tylenol 325mg Tab) 650 mg PO Q6 PRN PRN Reason: TEMP>=99.5F Last Admin: 11/01/17 06:14 Dose: 650 mg Acetaminophen (Tylenol 650 Mg Supp) 650 mg RC Q6H PRN PRN Reason: TEMP>=99.5F Doxycycline Hyclate (Doryx) 100 mg PO Q12 YORDAN PRN Reason: Protocol Last Admin: 11/01/17 09:56 Dose: 100 mg Ergocalciferol (Drisdol 50,000 Intl Units Cap) 1 cap PO Q48H YORDAN Heparin Sodium (Porcine) (Heparin) 5,000 units SC Q8 YORDAN PRN Reason: Protocol Last Admin: 11/01/17 05:41 Dose: Not Given Sodium Chloride (Sodium Chloride 0.9%) 1,000 mls @ 150 mls/hr IV .Q6H40M [facility] Last Admin: 10/31/17 08:34 Dose: 150 mls/hr Iron Sucrose 200 mg/ Sodium (Chloride) 110 mls @ 110 mls/hr IVPB DAILY [facility] Stop: 11/04/17 10:59 Last Admin: 11/01/17 09:56 Dose: 110 mls/hr Ceftriaxone Sodium (Rocephin 2 Gm Ivpb) 2 gm in 100 mls @ 100 mls/hr IVPB DAILY YORDAN PRN Reason: Protocol Stop: 11/11/17 10:16 Ketorolac Tromethamine (Toradol) 15 mg IVP Q6 PRN PRN Reason: Pain, moderate (4-7) Last Admin: 10/31/17 22:36 Dose: 15 mg Levalbuterol HCl (Xopenex) 0.63 mg IH [id number] YORDAN Last Admin: 11/01/17 09:47 Dose: 0.63 mg Ondansetron HCl (Zofran Inj) 4 mg IVP Q6 PRN PRN Reason: Nausea/Vomiting Last Admin: 10/30/17 21:03 Dose: 4 mg Pantoprazole Sodium (Protonix Ec Tab) 40 mg PO 0600 YORDAN Last Admin: 11/01/17 06:06 Dose: 40 mg - Labs Labs: 11/01/17 08:33 11/01/17 08:33 - Constitutional Appears: No Acute Distress - Head Exam Head Exam: ATRAUMATIC, NORMOCEPHALIC - Respiratory Exam Respiratory Exam: Clear to Ausculation Bilateral, NORMAL BREATHING PATTERN - Cardiovascular Exam Cardiovascular Exam: REGULAR RHYTHM, +S1, +S2 - GI/Abdominal Exam GI & Abdominal Exam: Soft, Normal Bowel Sounds. absent: Tenderness Additional comments: mild left CVA tenderness - Extremities Exam Extremities Exam: Normal Inspection - Neurological Exam Neurological Exam: Alert, Awake, Oriented x3 Assessment and Plan - Assessment and Plan (Free Text) Assessment: Sepsis secondary to E. coli pyelonephritis and urinary tract infection Anemia Plan: Patient is on oral doxycycline and IV Rocephin for urinary tract infection and pyelonephritis. Urine culture grow out E. coli. Patient continues to have fever of 100.3 this morning. WBC count is now normalized. continue IV antibiotics as per infectious disease. continue Toradol as needed for pain
[2017-11-01] MEDS: cefTRIAXone 2 GM IN NS 2 GM/100 ML BAG IVPB SCH (11:30)
[2017-11-01] MEDS: Sodium Chloride 0.9% 1,000 ML IV SCH (14:14)
--- NOTE | 2017-11-01 14:43 | PN ---
DATE: 11/01/2017 SUBJECTIVE: The patient is in bed. She says she is feeling better. She still has low grade fevers and some flank pain. PHYSICAL EXAMINATION: VITAL SIGNS: Temperature is 100.3 this morning, blood pressure is 109/63, respiratory rate of 18, heart rate of 88. HEENT: Unremarkable. NECK: Supple. LUNGS: Have decreased breath sounds. HEART: Normal S1, S2. ABDOMEN: Soft, nontender. LABORATORY DATA: Reveals a white count of 5.8, hemoglobin of 9, platelets of 195. Chemistries reveal a BUN of 2, creatinine of 0.5, and procalcitonin is noted at 0.87. Urinalysis is noted and serology reveals the patient's HIV is negative and GC workup is pending. Chlamydia workup is pending. RPR is negative. The patient's blood cultures are negative. Urine culture is E. Coli, which is pansensitive. ASSESSMENT AND PLAN: This is a 27-year-old female who was admitted with fever, left-sided flank pain and found to have sepsis with Escherichia coli, left pyelonephritis. Currently, we will treat the patient on ceftriaxone and the patient is also on doxycycline for possible pelvic inflammatory disease, may be able to switch to p.o. Cipro 500 mg p.o. b.i.d. x10 days once the patient is afebrile for 24 hours for pyelonephritis, maybe able to switch to p.o. to complete 10 to 14 days of total therapy. Currently, on ceftriaxone and p.o. doxycycline. Gonorrhea and Chlamydia workup still pending, although this appears to be a clear case of Escherichia coli pyelonephritis and sepsis. Gabriel Dominguez MD
[2017-11-01] MEDS: Potassium Chloride 20 mEq ER Tab PO SCH (18:05)
[2017-11-01] MEDS: Magnesium Oxide 400 mg Tab UD PO SCH (18:05)
[2017-11-02] MEDS: Sodium Chloride 0.9% 1,000 ML IV SCH ×2 (00:10→00:19)
[2017-11-02 01:14] VITALS: RESP 18
[2017-11-02] MEDS: Pantoprazole 40 mg EC Tab PO SCH (06:49)
[2017-11-02] MEDS: Levalbuterol 0.63 MG/3 ML Inhal Soln UD IH SCH ×2 (07:20→13:50)
[2017-11-02 07:58] LABS: BASO # 0.02 K/mm3 (0.0-2.0); BASO % 0.4 % (0.0-3.0); EOS # 0.1 (0.0-0.7); EOS % 1.3 % (1.5-5.0); GRAN # 2.47 (1.4-6.5); GRAN % 51.5 % (50.0-68.0); HEMOGLOBIN 10.1 g/dL (12.0-16.0); LYMPH # 1.4 (1.2-3.4); LYMPH % 28.3 % (22.0-35.0); MEAN CELL VOLUME 93.1 fl (80.0-105.0); MEAN CORPUSCULAR HEMOGLOBIN 30.1 pg (25.0-35.0); MEAN CORPUSCULAR HGB CONC 32.4 g/dl (31.0-37.0); MEAN PLATELET VOLUME 10.3 fl (7.0-11.0); MONO # 0.9 (0.1-0.6); MONO % 18.5 % (1.0-6.0); RBC 3.35 10^6/uL (3.5-6.1); RED CELL DISTRIBUTION WIDTH 13.7 % (11.5-14.5); WHITE BLOOD COUNT 4.8 10^3/ul (4.5-11.0)
[2017-11-02 08:40] LABS: ALB/GLOB RATIO 1.1 (1.1-1.8); ALBUMIN 3.6 g/dL (3.0-4.8); ALT/SGPT 38 U/L (7-56); AST/SGOT 48 U/L (14-36); BLOOD UREA NITROGEN 5 mg/dL (7-21); CALCIUM 9.4 mg/dL (8.4-10.5); GFR AFRICAN-AMERICAN > 60; GFR NON-AFRICAN AMERICAN > 60
[2017-11-02 08:46] LABS: ALB/GLOB RATIO 1.1 (1.1-1.8); ALBUMIN 3.6 g/dL (3.0-4.8); BILIRUBIN,DIRECT 0.2 mg/dL (0.0-0.4); MAGNESIUM 1.9 mg/dL (1.7-2.2)
[2017-11-02] MEDS: cefTRIAXone 2 GM IN NS 2 GM/100 ML BAG IVPB SCH (10:06)
[2017-11-02] MEDS: Magnesium Oxide 400 mg Tab UD PO SCH (10:22)
[2017-11-02] MEDS: Potassium Chloride 20 mEq ER Tab PO SCH (10:23)
--- NOTE | 2017-11-02 15:59 | CP.PCM.PN ---
Subjective - Date & Time of Evaluation Date of Evaluation: 11/02/17 Time of Evaluation: 12:30 - Subjective Subjective: Comfortable, no fevers. Objective - Vital Signs/Intake and Output Vital Signs (last 24 hours): Temp Pulse Resp BP Pulse Ox 98.9 F 70 18 108/68 97 11/02/17 07:00 11/02/17 07:00 11/02/17 07:00 11/02/17 07:00 11/02/17 07:00 Intake and Output: 11/02/17 11/02/17 06:59 18:59 Intake Total 1860 Balance 1860 - Medications Medications: Current Medications Acetaminophen (Tylenol 325mg Tab) 650 mg PO Q6 PRN PRN Reason: TEMP>=99.5F Last Admin: 11/01/17 06:14 Dose: 650 mg Acetaminophen (Tylenol 650 Mg Supp) 650 mg RC Q6H PRN PRN Reason: TEMP>=99.5F Doxycycline Hyclate (Doryx) 100 mg PO Q12 YORDAN PRN Reason: Protocol Last Admin: 11/02/17 10:23 Dose: 100 mg Ergocalciferol (Drisdol 50,000 Intl Units Cap) 1 cap PO Q48H YORDAN Last Admin: 11/01/17 18:05 Dose: 1 cap Heparin Sodium (Porcine) (Heparin) 5,000 units SC Q8 YORDAN PRN Reason: Protocol Last Admin: 11/02/17 15:41 Dose: Not Given Sodium Chloride (Sodium Chloride 0.9%) 1,000 mls @ 150 mls/hr IV .Q6H40M [facility] Last Admin: 11/02/17 00:19 Dose: 150 mls/hr Iron Sucrose 200 mg/ Sodium (Chloride) 110 mls @ 110 mls/hr IVPB DAILY [facility] Stop: 11/04/17 10:59 Last Admin: 11/02/17 10:05 Dose: 110 mls/hr Ceftriaxone Sodium (Rocephin 2 Gm Ivpb) 2 gm in 100 mls @ 100 mls/hr IVPB DAILY YORDAN PRN Reason: Protocol Stop: 11/11/17 10:16 Last Admin: 11/02/17 10:06 Dose: 100 mls/hr Ketorolac Tromethamine (Toradol) 15 mg IVP Q6 PRN PRN Reason: Pain, moderate (4-7) Last Admin: 10/31/17 22:36 Dose: 15 mg Levalbuterol HCl (Xopenex) 0.63 mg IH [id number] [facility] Last Admin: 11/02/17 13:50 Dose: 0.63 mg Magnesium Oxide (Mag-Ox) 400 mg PO DAILY [facility] Last Admin: 11/02/17 10:22 Dose: 400 mg Ondansetron HCl (Zofran Inj) 4 mg IVP Q6 PRN PRN Reason: Nausea/Vomiting Last Admin: 11/01/17 21:13 Dose: 4 mg Pantoprazole Sodium (Protonix Ec Tab) 40 mg PO 0600 [facility] Last Admin: 11/02/17 06:49 Dose: 40 mg Potassium Chloride (K-Dur 20 Meq Er Tab) 20 meq PO BRK [facility] Last Admin: 11/02/17 10:23 Dose: 20 meq - Labs Labs: 11/02/17 07:30 11/02/17 07:30 - Constitutional Appears: Non-toxic - Head Exam Head Exam: NORMAL INSPECTION - Respiratory Exam Respiratory Exam: Decreased Breath Sounds - Cardiovascular Exam Cardiovascular Exam: +S1, +S2 - GI/Abdominal Exam GI & Abdominal Exam: Soft. absent: Tenderness Assessment and Plan - Assessment and Plan (Free Text) Plan: Assessment Sepsis due to E. coli pyelonephritis Plan Continue Ciprofloxacin for 9 more days
[2017-11-02 17:01] VITALS: BP 100/59; PULSE 68; TEMP 97.7; O2SAT 96
[2017-11-02 17:52] LABS: C. PNEUMONIAE IGA <1:16 (<1:16); C. PNEUMONIAE IGG <1:64 (<1:64); C. PNEUMONIAE IGM <1:10 (<1:10); C. PSITTACI IGA <1:16 (<1:16); C. PSITTACI IGG <1:64 (<1:64); C. PSITTACI IGM <1:10 (<1:10)
[2017-11-03 17:11] LABS: C. PNEUMONIAE IGA <1:16 (<1:16); C. PNEUMONIAE IGG <1:64 (<1:64); C. PNEUMONIAE IGM <1:10 (<1:10); C. PSITTACI IGA <1:16 (<1:16); C. PSITTACI IGG <1:64 (<1:64); C. PSITTACI IGM <1:10 (<1:10)
--- NOTE | 2017-11-03 18:34 | DS ---
HISTORY: The patient is seen lying in the bed in room 573, bed 3. The patient states that she is feeling almost back to normal. The patient's overnight nurse's notes were reviewed. No adverse events documented. The patient slept well overnight.. The patient desperately wants to go home today, but the patient was advised that we will await for clearance from Infectious Disease prior to discharge. PHYSICAL EXAMINATION: VITAL SIGNS: T-max in the last 24 hours is 98.9; heart rate 68, 70, 87; blood pressure is 110/63, 108/68; respiration 18; O2 sat 97 to 96%. HEENT: Head: Normocephalic, atraumatic. Pinkish pale conjunctivae. Anicteric sclera. No oropharyngeal lesion. No neck rigidity. CHEST: Kyphosis. LUNGS: No rales, crackles or wheezing. CARDIOVASCULAR: S1, S2, regular rhythm. No audible murmur, gallop, or rub. ABDOMEN: Soft. Positive bowel sounds. No costovertebral angle tenderness noted today. GENITALIA: Female. RECTAL: Deferred. EXTREMITIES: Shows no pitting edema, no calf tenderness, no Homans signs. NEUROLOGIC: The patient is alert, awake, oriented x3. Cranial nerves II-XII grossly intact. MUSCULOSKELETAL: Shows a body mass index of 17.2. VASCULAR: Palpable pulses. DIAGNOSTIC DATA: On 11/02/2017, WBC 4.8, hemoglobin/hematocrit 10.1 and 31.2, platelet 273. Sodium 142, potassium 3.8, chloride 107, CO2 of 24, anion gap 14, BUN 5, creatinine 0.6, GFR is greater than 60, glucose 82, calcium 9.4, magnesium 1.9. AST 48, 54 and rest of the LFTs are normal. RPR is nonreactive. Chlamydia pneumoniae, trachomatis, psittaci negative. The patient's Neisseria gonorrhoeae is still pending. Repeat blood cultures negative. Urine cultures, E-coli. FINAL IMPRESSION, PLAN AND DISCHARGE DIAGNOSES: 1. Sepsis secondary to Escherichia coli, left-sided pyelonephritis with high-grade fever, left flank pain. 2. High-grade fever of 103.4 (resolved). 3. Hypotension and hypovolemia. 4. Tachycardia. 5. Decreased body mass index. 6. Leukocytosis with granulocytosis. 7. Normocytic iron-deficiency anemia. 8. Status post IV Venofer treatment. 9. Hypokalemia. 10. Hyper procalcitonemia. 11. Hypovitaminosis D. 12. Elevated C-reactive protein of greater than 15. 13. Escherichia coli urinary tract infection and left-sided pyelonephritis with proteinuria, ketonuria, microscopic hematuria, bacteriuria. 14. Reactive small airway disease versus viral bronchitis with pulmonary hyperinflation and peribronchial cuffing with bilateral streaky opacities. 15. Intrauterine device. 16. Bilateral ovarian simple cyst. 17. Right middle lobe atelectasis and bibasilar atelectasis. 18. Right cul-de-sac trace fluid. 19. Lumbar scoliosis. 20. Anterior hepatic dome solitary tiny lucency. 21. A 4-mm noncalcified nodule of possible atypical right basal atelectasis. At present, the patient was cleared by infectious disease for discharge as the patient desperately wants to go home. The patient is to be discharged home. DISCHARGE MEDICATIONS: 1. Tylenol 650 q. 6 p.r.n. 2. Cipro 500 twice a day. 3. Doxycycline 100 mg p.o. q. 12 hours for 7 days. 4. Drisdol 50,000 units 3 times a week. 5. Magnesium oxide 400 mg daily. 6. K-Dur 20 mEq daily for 1-2 weeks. DISCHARGE FOLLOWUP: The patient is to be discharged home. Discharge followup with Dr. Cutler within 1 week. The patient's discharge medications were given to the patient upon discharge. The patient is advised to have a FAMILY SERVICES ASSISTANT followup for possible IUD removal. The patient was also advised to have a repeat CT scan of the chest within few months. During this hospitalization, the patient was extensively explained about the details of her medical condition, diagnosis, treatment plan, management plan, recommendation by all the physicians involved in the care of the patient and treatment outlined, close outpatient followup, details and diagnostic test results and recommendation were extensively explained to the patient on a daily basis and even on the day of discharge. Patient is presently in-house, the patient is on doxycycline 100 mg p.o. q. 12, Drisdol 50,000 three times a week, heparin 5000 subcu q. 8. The patient completed IV Venofer 200 mg daily times 3 doses. The patient is on K-Dur 20 mEq daily, magnesium oxide 400 mg daily, Protonix 40 mg daily, Rocephin 2 g IV daily, which the patient received today's dose, IV fluid 0.9 normal saline at 150 mL an hour, Tylenol 650 mg p.o. suppository q. 6 p.r.n., Xopenex nebulizer 0.63 mg every 6 hours, Zofran 4 mg IV q. 6 hours p.r.n. Time spent in the entire discharge process more than 45 minutes. Dictated and electronically signed, not read. Satish Cutler MD
== END 2017-11-02 22:07 | disposition home or self-care (01) | DRG 872 ==
LOC: ED 10:00 → ERH 14:54 → 5RSO 21:38
PROVIDERS: ADMIT Internal Medicine; ATTEND Internal Medicine
DX: A41.9 Sepsis, unspecified organism (principal); N10 Acute pyelonephritis; J98.11 Atelectasis; M41.86 Other forms of scoliosis, lumbar region; B96.20 Unspecified Escherichia coli [E. coli] as the cause of diseases classified elsewhere; E86.1 Hypovolemia; D50.9 Iron deficiency anemia, unspecified; E87.6 Hypokalemia; E55.9 Vitamin D deficiency, unspecified; N83.291 Other ovarian cyst, right side; N83.292 Other ovarian cyst, left side; N73.9 Female pelvic inflammatory disease, unspecified; Z97.5 Presence of (intrauterine) contraceptive device